=== PATIENT | female | born 1985 | race Caucasian/White ===

== ENCOUNTER → 2021-09-05 | Emergency (ER) | payer BC ==
[~2021-09-05] VITALS: Ht 172.7 cm; Wt 79.4 kg
[~2021-09-05] MED LIST: BENADRYL ALLERG25 MG PO; CLINDAMYCIN HC300 MG PO; ESOMEPRAZOLE MA40 MG; HYDROXYZIN10 MG/5 ML; INTESTINEX680 M1 PO; KETO10TA2 PO; LAMOTRIGINE100 MG; PAXIL10 MG/5 ML PO; PROSCAR5 MG; PROSCAR5 MG PO; PROZAC40 MG; SM CALAMINE LO177 ML TOP; XANAX XR0.5 MG PO
== END | disposition home or self-care (01) ==
LOC: ER 21:15 → EDBD 21:15 → ER 22:52
DX: W57.XXXA Bitten or stung by nonvenomous insect and other nonvenomous arthropods, initial encounter (principal); L03.113 Cellulitis of right upper limb

== ENCOUNTER 2021-09-06 09:45 | Emergency (ER) | payer BC ==
[~2021-09-06] VITALS: Ht 172.7 cm; Wt 79.4 kg
[~2021-09-06 09:45] MED LIST changes: -ESOMEPRAZOLE MA40 MG; -HYDROXYZIN10 MG/5 ML; -LAMOTRIGINE100 MG; -PROSCAR5 MG; -PROZAC40 MG; -SM CALAMINE LO177 ML TOP
[2021-09-06] MEDS ORDERED: ESOMEPRAZOLE MA40 MG (10:15)
[2021-09-06] MEDS ORDERED: PROSCAR5 MG (10:16)
[2021-09-06] MEDS ORDERED: PROZAC40 MG (10:16)
[2021-09-06] MEDS ORDERED: LAMOTRIGINE100 MG (10:17)
[2021-09-06] MEDS ORDERED: HYDROXYZIN10 MG/5 ML (10:18)
[2021-09-06] MEDS ORDERED: SM CALAMINE LO177 ML TOP (13:24)
== END 2021-09-06 14:03 | disposition home or self-care (01) ==
LOC: ER 09:45
DX: S40.861A Insect bite (nonvenomous) of right upper arm, initial encounter (principal); W57.XXXA Bitten or stung by nonvenomous insect and other nonvenomous arthropods, initial encounter; Y93.9 Activity, unspecified; Y92.89 Other specified places as the place of occurrence of the external cause